=== PATIENT | female | born 1990 | race Caucasian/White ===

== ENCOUNTER 2016-06-03 01:03 | Emergency (ER) | payer BC ==
[~2016-06-03] VITALS: Ht 152.4 cm; Wt 62.6 kg
[~2016-06-03 01:03] MED LIST: IBUP600T OR; MILKSUS OR
[2016-06-03] MEDS ORDERED: CARA1TAB2 PO (01:15)
[2016-06-03] MEDS ORDERED: RANI300T PO (01:15)
[2016-06-03] MEDS ORDERED: CLAR1TAB2 PO (01:17)
[2016-06-03] MEDS ORDERED: FLUT1LOT INH (01:17)
[2016-06-03] MEDS ORDERED: TESS100C PO (01:17)
[2016-06-03] MEDS ORDERED: KETOROLAC 30 MG/ML VIAL (J1885) IM ONE (04:30)
[2016-06-03] MEDS ORDERED: KETO10TAB PO (04:43)
[2016-06-03 05:03] VITALS: BP 115/68
--- NOTE | 2016-06-03 08:56 | REP ---
Right hand series: Four views. History: Trauma. Findings: Four views of the right hand demonstrate a volar plate avulsion chip fracture at the PIP joint of the long finger from the base of the middle phalanx. There is associated swelling. No other fracture is seen. There is a bone island in the radial styloid. Impression: Nondisplaced volar plate chip fracture base of the middle phalanx of the long finger at the PIP joint. Signed by Leonardo Sue MD 06/03/2016 09:39 A
== END 2016-06-03 05:26 | disposition home or self-care (01) ==
LOC: M ED 03:19
DX: S62.642A Nondisplaced fracture of proximal phalanx of right middle finger, initial encounter for closed fracture (principal); S62.644A Nondisplaced fracture of proximal phalanx of right ring finger, initial encounter for closed fracture; W01.198A Fall on same level from slipping, tripping and stumbling with subsequent striking against other object, initial encounter; Y92.410 Unspecified street and highway as the place of occurrence of the external cause; Y93.01 Activity, walking, marching and hiking; Y99.9 Unspecified external cause status

== ENCOUNTER → 2017-01-10 | Outpatient (CLI) | payer BC ==
[~2017-01-10] MED LIST changes: +CARA1TAB6 PO; +CLAR1TAB2 PO; +FLUT1LOT INH; +KETO10TAB PO; +RANI300T PO; +TESS100C PO
[2017-01-10 18:01] LABS: ANION GAP 7 MEQ/L (8-16); BLOOD UREA NITROGEN 9 MG/DL (7-18); CALCIUM LEVEL 9.4 MG/DL (8.5-10.1); CARBON DIOXIDE LEVEL 28 MEQ/L (21-32); CHLORIDE LEVEL 105 MEQ/L (98-107); CREATININE FOR GFR 0.71 MG/DL (0.55-1.02); FREE T4 1.02 NG/DL (0.76-1.46); GLOMERULAR FILTRATION RATE > 60.0 (>60); GLUCOSE, FASTING 94 MG/DL (70-105); POTASSIUM SERUM 4.1 MEQ/L (3.5-5.1); SODIUM LEVEL 140 MEQ/L (136-145)
[2017-01-13 00:11] LABS: TISSUE TRANSGLUTAMINASE IgG <2 U/mL (0-5)
== END ==
LOC: M WUC 14:11
PROVIDERS: ATTEND Family Medicine
DX: E55.9 Vitamin D deficiency, unspecified (principal); M25.60 Stiffness of unspecified joint, not elsewhere classified; M54.2 Cervicalgia; Z84.81 Family history of carrier of genetic disease

== ENCOUNTER → 2017-04-17 | Outpatient (REF) | payer BC | LOC: M LAB REF 17:18 | DX: R53.81 Other malaise (principal) | CPT/HCPCS: 87070 ==

== ENCOUNTER → 2017-06-05 | Outpatient (CLI) | payer BC | LOC: M RAD 09:47 | DX: M54.2 Cervicalgia (principal); M54.5 Low back pain; M54.6 Pain in thoracic spine | CPT/HCPCS: 72052 ==

== ENCOUNTER → 2018-01-08 | Outpatient (REF) | payer BC | LOC: M LAB REF 17:07 | DX: J02.9 Acute pharyngitis, unspecified (principal) | CPT/HCPCS: 87070 ==

== ENCOUNTER → 2018-04-20 | Outpatient (REF) | payer BC | LOC: M LAB 15:17 | PROVIDERS: ATTEND Physician Assistant Medical | DX: J02.9 Acute pharyngitis, unspecified (principal) ==

== ENCOUNTER 2018-06-04 22:27 | Emergency (ER) | payer BC ==
[~2018-06-04] VITALS: Ht 152.4 cm; Wt 68.7 kg
[2018-06-04] MEDS ORDERED: DIPH12.5 PO (22:33)
[2018-06-04] MEDS ORDERED: BRIN1TAB PO (22:33)
[2018-06-04] MEDS ORDERED: FLUT22IN INH (22:33)
[2018-06-04] MEDS ORDERED: PEPT262C2 PO (22:33)
[2018-06-04] MEDS ORDERED: NS 1,000 ML IV ONE (22:45)
[2018-06-04] MEDS ORDERED: ONDANSETRON 4MG/2ML VIAL (J2405) IV ONE (22:45)
[2018-06-04 23:32] LABS: BASO % 0.1 % (0.0-1.0); EOS % 0.2 % (0.0-3.0); HEMATOCRIT 42.6 % (36.0-47.0); HEMOGLOBIN 14.6 g/dl (12.0-15.5); LYMPH # 0.4 10^3/uL (1.5-6.5); LYMPH % 4.4 % (24.0-44.0); MEAN CORPUSCULAR HEMOGLOBIN 29.1 pg (27.0-33.0); MEAN CORPUSCULAR HGB CONC 34.3 g/dl (32.0-36.5); MEAN CORPUSCULAR VOLUME 84.9 fl (80.0-96.0); MONO # 0.4 10^3/uL (0.0-0.8); MONO % 3.9 % (0.0-5.0); NEUTROPHILS # 8.3 10^3/uL (1.8-7.7); NEUTROPHILS % 91.1 % (36.0-66.0); PLATELET COUNT, AUTOMATED 215 10^3/uL (150-450); RED BLOOD COUNT 5.02 10^6/uL (4.00-5.40); WHITE BLOOD COUNT 9.1 10^3/uL (4.0-10.0)
[2018-06-04 23:49] LABS: HCG, SERUM QUALITATIVE NEGATIVE (NEGATIVE)
[2018-06-04 23:58] LABS: ALBUMIN 4.3 GM/DL (3.2-5.2); ALT/SGPT 26 U/L (12-78); BILIRUBIN,DIRECT 0.2 MG/DL (0.0-0.2); BILIRUBIN,TOTAL 0.6 MG/DL (0.2-1.0); BLOOD UREA NITROGEN 12 MG/DL (7-18); CALCIUM LEVEL 8.5 MG/DL (8.5-10.1); CARBON DIOXIDE LEVEL 26 MEQ/L (21-32); CHLORIDE LEVEL 107 MEQ/L (98-107); CREATININE FOR GFR 0.64 MG/DL (0.55-1.30); GLOMERULAR FILTRATION RATE > 60.0 (>60); GLUCOSE, FASTING 109 MG/DL (70-100); LIPASE 76 U/L (73-393); POTASSIUM SERUM 3.6 MEQ/L (3.5-5.1); SODIUM LEVEL 140 MEQ/L (136-145); TOTAL PROTEIN 7.5 GM/DL (6.4-8.2)
[2018-06-05] MEDS ORDERED: ZOFR4TAB16 PO (00:39)
[2018-06-05 00:51] VITALS: BP 106/55
== END 2018-06-05 00:55 | disposition home or self-care (01) ==
LOC: M ED 22:27
DX: R11.2 Nausea with vomiting, unspecified (principal); R00.0 Tachycardia, unspecified; J45.909 Unspecified asthma, uncomplicated; F41.9 Anxiety disorder, unspecified; Z88.8 Allergy status to other drugs, medicaments and biological substances; Z88.5 Allergy status to narcotic agent; Z88.1 Allergy status to other antibiotic agents; Z88.0 Allergy status to penicillin; Z91.040 Latex allergy status; Z91.013 Allergy to seafood; Z79.899 Other long term (current) drug therapy
CPT/HCPCS: 80048; 80076; 83690; 84703; 85025; 96374; 99284; J2405

== ENCOUNTER → 2018-08-15 | Outpatient (CLI) | payer BC ==
[~2018-08-15] MED LIST changes: +BRIN1TAB PO; +DIPH12.529 PO; +FLUT22IN INH; +PEPT262C2 PO; +ZOFR4TAB16 PO
[2018-08-15 13:12] LABS: BASO # 0.1 10^3/uL (0.0-0.2); BASO % 0.9 % (0.0-1.0); EOS # 0.1 10^3/uL (0.0-0.50); EOS % 1.9 % (0.0-3.0); HEMATOCRIT 43.4 % (36.0-47.0); HEMOGLOBIN 14.2 g/dl (12.0-15.5); LYMPH # 1.6 10^3/uL (1.5-6.5); MEAN CORPUSCULAR HEMOGLOBIN 29.1 pg (27.0-33.0); MEAN CORPUSCULAR HGB CONC 32.7 g/dl (32.0-36.5); MEAN CORPUSCULAR VOLUME 88.9 fl (80.0-96.0); MONO # 0.4 10^3/uL (0.0-0.8); MONO % 8.1 % (0.0-5.0); NEUTROPHILS # 3.2 10^3/uL (1.8-7.7); NEUTROPHILS % 58.9 % (36.0-66.0); PLATELET COUNT, AUTOMATED 242 10^3/uL (150-450); RED BLOOD COUNT 4.88 10^6/uL (4.00-5.40); WHITE BLOOD COUNT 5.3 10^3/uL (4.0-10.0)
[2018-08-15 13:47] LABS: BLOOD UREA NITROGEN 11 MG/DL (7-18); CALCIUM LEVEL 9.3 MG/DL (8.5-10.1); CARBON DIOXIDE LEVEL 29 MEQ/L (21-32); CHLORIDE LEVEL 106 MEQ/L (98-107); CREATININE FOR GFR 0.74 MG/DL (0.55-1.30); FERRITIN 22 NG/ML (8-252); FREE T4 1.04 NG/DL (0.76-1.46); GLOMERULAR FILTRATION RATE > 60.0 (>60); GLUCOSE, FASTING 85 MG/DL (70-100); IRON (FE) 118 UG/DL (50-170); PERCENT SATURATION 39.6 % (13.2-45.0); POTASSIUM SERUM 4.4 MEQ/L (3.5-5.1); SODIUM LEVEL 141 MEQ/L (136-145); TOTAL IRON BINDING CAPACITY 298 UG/DL (250-450)
== END ==
LOC: M WUC 10:01
PROVIDERS: ATTEND Physician Assistant
DX: R53.83 Other fatigue (principal); F41.9 Anxiety disorder, unspecified

== ENCOUNTER → 2018-08-21 | Outpatient (REF) | payer BC | LOC: M LAB REF 17:16 | PROVIDERS: ATTEND Obstetrics & Gynecology | DX: Z12.4 Encounter for screening for malignant neoplasm of cervix (principal) ==

== ENCOUNTER → 2018-09-09 | Outpatient (CLI) | payer BC ==
--- NOTE | 2018-09-11 08:31 | SLEEPHOME ---
DATE OF PROCEDURE: 09/09/2018 ORDERED BY: LOUIES Franz Diagnostic home sleep testing was performed due to concern for the obstructive sleep apnea syndrome. For testing a nocturnal T3 respiratory monitoring device was used. Continuous record was made of pulse, oxygen saturation, airflow, chest, abdominal strain, and body position. 10 hours and 22 minutes of data were reviewed. There were 654 minutes marked as time in bed. During the interval marked time in bed, there were 36 respiratory events identified of 10 seconds in duration or greater for a respiratory event index of 5.2. The events were both mixed obstructive and central, 20 obstructive and central events being scored. Baseline pulse rate 64 beats per minute. Pulse rate ranged 48-153. Baseline saturation was 95%. Oxygen desaturations were seen to 84% with an oxygen desaturation index of 4.3. Testing was performed in both the supine and nonsupine positions. Obstructive respiratory events were more frequent in the supine posture. IMPRESSION: Abnormal home sleep testing with repetitive respiratory events and oxygen desaturation to 84% with a respiratory event index of 5.2 is consistent with the obstructive sleep apnea syndrome. RECOMMENDATIONS: As the respiratory events were associated primarily with the supine posture, sleep position retraining for avoidance of the supine posture is recommended. If symptoms persists, referral for formal sleep evaluation is recommended.
== END ==
LOC: M SLEEP HO 10:20
PROVIDERS: ATTEND Physician Assistant
DX: R53.83 Other fatigue (principal)

== ENCOUNTER → 2018-10-30 | Outpatient (CLI) | payer BC ==
--- NOTE | 2018-11-05 13:32 | SLEEPCENT ---
DATE OF PROCEDURE: 10/30/2018 ORDERED BY: Flores Box NP Nocturnal polysomnography was performed for the titration of pressure therapy in this patient with a clinical history of obstructive sleep apnea syndrome confirmed by home testing revealing respiratory event index of 5.2. For testing, a ResMed Mirage full face mask of small size was used, 4 cm of water pressure were applied circuit and the lights were extinguished. 8 hours and 18 minutes of data were reviewed. There were 403 minutes of sleep identified. Sleep latency was prolonged 63 minutes. Rapid eye movement (REM) latency was normal at 78 minutes. Sleep architecture was good with three REM cycles. Overall sleep efficiency 83.6%. The electrocardiogram showed a sinus rhythm with an average heart rate of 60 beats per minute. Electroencephalogram (EEG) showed reasonably normal waveforms for awake and sleep. Respiratory events were fully palliated with C-PAP of pressure of +8. There was minimal limb activity and remaining measures of sleep physiology were normal. IMPRESSION: Obstructive sleep apnea syndrome (G47.33). RECOMMENDATIONS: Nightly use of pressure therapy 8 cm of water.
== END ==
LOC: M SLEEP 19:40
PROVIDERS: ATTEND Nurse Practitioner Family
DX: G47.33 Obstructive sleep apnea (adult) (pediatric) (principal)

== ENCOUNTER → 2018-12-14 | Outpatient (REF) | payer BC ==
[2018-12-14 16:01] LABS: APPEARANCE, URINE HAZY (CLEAR); BACTERIA, URINE AUTO 1+ (NEGATIVE); BILIRUBIN, URINE AUTO NEGATIVE (NEGATIVE); BLOOD, URINE BLOOD NEGATIVE (NEGATIVE); COLOR, URINE YELLOW (YELLOW); GLUCOSE, URINE (UA) AUTO NEGATIVE (NEGATIVE); KETONE, URINE AUTO NEGATIVE (NEGATIVE); LEUKOCYTE ESTERASE, URINE AUTO NEGATIVE (NEGATIVE); NITRITE, URINE AUTO NEGATIVE (NEGATIVE); PROTEIN, URINE AUTO NEGATIVE (NEGATIVE); RBC, URINE AUTO 1 /HPF (0-3); SPECIFIC GRAVITY URINE AUTO 1.018 (1.002-1.035); SQUAMOUS EPITHELIAL CELL UR AU 3 /HPF (0-6); UROBILINOGEN, URINE AUTO 0.2 mg/dL (0.0-2.0); WBC, URINE AUTO 0 /HPF (0-3)
== END ==
LOC: M LAB REF 15:46
PROVIDERS: ATTEND Physician Assistant Medical
DX: N39.0 Urinary tract infection, site not specified (principal)

== ENCOUNTER → 2018-12-16 | Outpatient (CLI) | payer BC ==
--- NOTE | 2018-12-16 19:27 | REP ---
Lumbar spine seven views including lateral views in extension and flexion.: Comparison is 06/05/2017. There is mild scoliosis convex right at the thoracolumbar junction as an interval change, possibly positional. Vertebral body heights, interspacing alignment are normal. The pedicles and facets are unremarkable. There is no spondylolysis. There is no spondylolisthesis. There is no listhesis on the lateral flexion and extension views. Impression: Mild scoliosis as described, possibly positional. Otherwise, negative lumbar spine. Electronically Signed by Dwain Guillen MD 12/16/2018 07:19 P
--- NOTE | 2018-12-16 19:31 | REP ---
Supine and upright views of the abdomen, two views: Comparison is the upper gastrointestinal series dated 06/11/2008. The bowel gas pattern is normal. There is an IUD in the pelvis. There are pelvic calcifications on the right, likely phleboliths. There is mild lumbar scoliosis convex right. Impression: Normal bowel gas pattern. IUD. Electronically Signed by Dwain Guillen MD 12/16/2018 07:21 P
== END ==
LOC: M WUC 18:57
PROVIDERS: ATTEND Family Medicine
DX: M54.5 Low back pain (principal); K30 Functional dyspepsia; M41.35 Thoracogenic scoliosis, thoracolumbar region

== ENCOUNTER → 2018-12-20 | Outpatient (REF) | payer BC | LOC: M LAB REF 17:10 | PROVIDERS: ATTEND Family Medicine | DX: K30 Functional dyspepsia (principal) ==

== ENCOUNTER → 2019-07-01 | Outpatient (CLI) | payer BC ==
--- NOTE | 2019-07-03 20:58 | SLEEPMSLT ---
DATE OF PROCEDURE: 07/01/2019 Nocturnal polysomnography was performed followed by multiple sleep latency testing in this patient with obstructive sleep apnea syndrome and complains of persistent daytime symptoms. For testing, a ResMed AirFit F30 full face mask of small size was used, 8 cm of water pressure were applied to the circuit and the lights were extinguished. 7 hours and 46 minutes of data were reviewed. There were 383 minutes of sleep identified. Sleep latency was prolonged at 61.5 minutes. REM latency was normal at 69 minutes. Sleep architecture was good with four REM cycles of progressive length. Overall sleep efficiency was 83%. The electrocardiogram showed a sinus rhythm with an average heart rate of 68 beats per minute. EEG showed essentially normal waveforms for awake and sleep. Some EKG lead throw was seen. There were no focal events. Respiratory events were fully palliated with C-PAP at a pressure of +8. There was some limb activity seen early in the study. Two trains of 30 events were identified. Limb movement arousal index, however, was only five. Oxygen saturations remained 90% plus. Nocturnal polysomnography was followed by multiple sleep latency testing. Four nap opportunities were offered at 2 hour intervals. Sleep was appreciated on four of four nap opportunities. Curiously, the sleep onset declined over the course of the four nap opportunities. Mean sleep latency was 6.9. IMPRESSION 1. Obstructive sleep apnea syndrome (G47.33). 2. Borderline mean sleep latency for hypersomnia. COMMENT The patient's obstructive sleep apnea syndrome appears to be fully palliated with C-PAP. The delayed sleep latency raises the question of sleep timing as a potential issue. The patient's multiple sleep latency test is in the singh zone between 5 and 10 minutes suggesting some degree of hypersomnia.
== END ==
LOC: M SLEEP 20:00
PROVIDERS: ATTEND Nurse Practitioner Family
DX: G47.33 Obstructive sleep apnea (adult) (pediatric) (principal)

== ENCOUNTER → 2024-05-19 | Outpatient (REF) | LOC: M EMP 12:24 | PROVIDERS: ATTEND Family Medicine | DX: Z11.52 Encounter for screening for COVID-19 (principal) ==

== ENCOUNTER → 2024-07-02 | Outpatient (CLI) | payer BC ==
[2024-07-02 08:02] LABS: BASO # 0.1 10^3/uL (0.0-0.2); BASO % 0.9 % (0.0-1.0); EOS # 0.2 10^3/uL (0.0-0.5); EOS % 2.3 % (0.0-3.0); HEMATOCRIT 41.1 % (36.0-47.0); HEMOGLOBIN 13.8 g/dl (12.0-15.5); LYMPH # 1.8 10^3/uL (1.5-5.0); MEAN CORPUSCULAR HEMOGLOBIN 28.2 pg (27.0-33.0); MEAN CORPUSCULAR HGB CONC 33.6 g/dl (32.0-36.5); MEAN CORPUSCULAR VOLUME 83.9 fl (80.0-96.0); MONO # 0.5 10^3/uL (0.0-0.8); MONO % 8.1 % (2.0-8.0); NEUTROPHILS # 4.1 10^3/uL (1.5-8.5); NEUTROPHILS % 61.5 % (36.0-66.0); PLATELET COUNT, AUTOMATED 255 10^3/uL (150-450); WHITE BLOOD COUNT 6.6 10^3/uL (4.0-10.0)
[2024-07-02 08:34] LABS: ALBUMIN 3.7 G/DL (3.2-5.2); ALKALINE PHOSPHATASE 62 U/L (35-104); ALT/SGPT 20 U/L (7.0-40); AST/SGOT 10 U/L (<34); BILIRUBIN,TOTAL 0.6 MG/DL (0.3-1.2); BLOOD UREA NITROGEN 12 MG/DL (9-23); CALCIUM LEVEL 9.2 MG/DL (8.5-10.1); CARBON DIOXIDE LEVEL 27 MMOL/L (20-31); CHLORIDE LEVEL 105 MMOL/L (98-107); CHOLESTEROL LEVEL 140 MG/DL (<200); CHOLESTEROL RISK RATIO 2.85 (<5); CREATININE FOR GFR 0.64 MG/DL (0.55-1.30); GLOMERULAR FILTRATION RATE > 90.0 (>60); GLUCOSE, FASTING 95 MG/DL (60-100); HDL CHOLESTEROL 49.1 MG/DL (>40); LDL CHOLESTEROL 61.9 MG/DL (<100); NON-HDL-C 90.9 MG/DL; POTASSIUM SERUM 4.5 MMOL/L (3.5-5.1); SODIUM LEVEL 140 MMOL/L (136-145); TRIGLYCERIDES LEVEL 145 MG/DL (<150)
[2024-07-02 08:36] LABS: FREE T4 1.14 NG/DL (0.89-1.76); THYROID STIMULATING HORMONE 2.642 uIU/ML (0.55-4.78); TOTAL 25(OH) VITAMIN D 23.7 NG/ML (20.0-100.0)
== END ==
LOC: M LAB 07:29
PROVIDERS: ATTEND Nurse Practitioner Family
DX: R53.83 Other fatigue (principal); Z13.220 Encounter for screening for lipoid disorders; E55.9 Vitamin D deficiency, unspecified

== ENCOUNTER → 2024-10-31 | Outpatient (REF) | payer BC | LOC: M SFHCPLAZ 16:44 | PROVIDERS: ATTEND Nurse Practitioner Family | DX: F90.2 Attention-deficit hyperactivity disorder, combined type (principal) ==